=== PATIENT | female | born 1960 | race Two or more races ===

== ENCOUNTER 2021-10-01 01:17 | Emergency (ER) | payer MEDICAID ==
[~2021-10-01] VITALS: Ht 154.9 cm; Wt 56.2 kg
[2021-10-01 01:17] VITALS: BP 160/73
[~2021-10-01 01:17] MED LIST: CALCCAP7; CHOL400C7; NOR10T; chemo
== END 2021-10-01 01:58 | disposition left against medical advice (07) ==
LOC: ER 01:17
DX: R19.7 Diarrhea, unspecified (principal); Z53.21 Procedure and treatment not carried out due to patient leaving prior to being seen by health care provider